=== PATIENT | female | born 1970 | race Caucasian/White ===

== ENCOUNTER 2020-05-06 19:50 | Emergency (ER) | payer OTHER ==
[~2020-05-06] VITALS: Ht 162.6 cm; Wt 100.2 kg
[2020-05-06] MEDS ORDERED: Percocet 5-3251 EACH PO (22:16)
[2020-05-06] MEDS ORDERED: CRUTCH4 XX (22:43)
== END 2020-05-06 22:45 | disposition home or self-care (01) ==
LOC: ER 19:50
DX: S93.622A Sprain of tarsometatarsal ligament of left foot, initial encounter (principal); Z88.0 Allergy status to penicillin; Z88.2 Allergy status to sulfonamides; Z88.8 Allergy status to other drugs, medicaments and biological substances; X50.1XXA Overexertion from prolonged static or awkward postures, initial encounter
CPT/HCPCS: 29515; 73620; 73630; 99283-25; A9270